=== PATIENT | male | born 1960 | race Caucasian/White ===

== ENCOUNTER 2017-03-20 16:52 | Emergency (ER) | payer OTHER ==
[2017-03-20 17:36] VITALS: BMI 29.3
[2017-03-20 17:39] VITALS: RESP 18; TEMP 97.8
--- NOTE | 2017-03-20 18:13 | C.PDOC ---
History Of Present Illness 56 y/o male presents to ED with complaints of onset cough developed after taking unknown cough medicine. Patient states he took medicine and was okay then took his routine Motrin 800mg and immediately had cough. At ED patient is asymptomatic and feels normal. Patient denies sob, chest pain, itchiness, swelling, rash or any other complaints at this time. COUGH ONSET AFTER TAKING UNK COLD MEDICINE. PS TOOK MEDICINE WAS OK THEN TOOK HIS ROUTINE MOTRIN 800MG. IMMEDIATELY HAD COUGHING. NOW ASYMPT AND FEELS NORMAL. NO ASSOC SOB, CP, ITCH, SWELL, RASH. HO SMOKING. EXAM NEG Time Seen by Provider: 03/20/17 18:04 Chief Complaint (Nursing): Allergic Reaction History Per: Patient History/Exam Limitations: no limitations Onset/Duration Of Symptoms: Days Current Symptoms Are (Timing): Still Present Past Medical History Reviewed: Historical Data, Nursing Documentation, Vital Signs Vital Signs: Last Vital Signs Temp 97.8 F 03/20/17 17:36 Pulse 72 03/20/17 18:19 Resp 18 03/20/17 18:19 BP 118/68 03/20/17 18:19 Pulse Ox 98 03/20/17 18:19 - Medical History PMH: No Chronic Diseases Surgical History: No Surg Hx Family History: States: No Known Family Hx - Social History Hx Alcohol Use: No Hx Substance Use: No Review Of Systems Except As Marked, All Systems Reviewed And Found Negative. Constitutional: Negative for: Fever, Chills Cardiovascular: Negative for: Chest Pain, Palpitations Respiratory: Positive for: Cough. Negative for: Shortness of Breath Gastrointestinal: Negative for: Nausea, Vomiting Skin: Negative for: Rash Neurological: Negative for: Weakness, Numbness Physical Exam - Physical Exam Appears: Non-toxic, No Acute Distress Skin: Normal Color, Warm, Dry, No Rash Head: Atraumatic, Normacephalic Eye(s): bilateral: Normal Inspection Nose: Normal Oral Mucosa: Moist Throat: Normal, No Erythema, No Exudate Neck: Normal ROM, Supple Chest: Symmetrical Cardiovascular: Rhythm Regular, No Murmur Respiratory: Normal Breath Sounds, No Rales, No Rhonchi, No Wheezing Extremity: Normal ROM, Capillary Refill (<2 seconds) Neurological/Psych: Oriented x3 ED Course And Treatment O2 Sat by Pulse Oximetry: 96 (RA) Pulse Ox Interpretation: Normal Disposition Counseled Patient/Family Regarding: Diagnosis, Need For Followup, Smoking Cessation - Disposition Referrals: YOUR,PMD [Other] Disposition: HOME/ ROUTINE Disposition Time: 18:12 Condition: GOOD Instructions: Acute Cough (ED) Forms: [facility] (Micronesian), General Discharge Instructions - Clinical Impression Clinical Impression: Cough - Scribe Statement The provider has reviewed the documentation as recorded by the Juanibraven Constantino All medical record entries made by the Juanibraven were at my direction and personally dictated by me. I have reviewed the chart and agree that the record accurately reflects my personal performance of the history, physical exam, medical decision making, and the department course for this patient. I have also personally directed, reviewed, and agree with the discharge instructions and disposition.
[2017-03-20 18:22] VITALS: BP 118/68; PULSE 72
[2017-03-20 18:45] VITALS: O2SAT 96
== END 2017-03-20 18:23 | disposition home or self-care (01) ==
LOC: C.ER 16:52
DX: R05 Cough (principal)